=== PATIENT | female | born 1945 | race Caucasian/White ===

== ENCOUNTER 2018-10-24 08:43 | Day surgery (SDC) | payer MEDICARE ==
[~2018-10-24] VITALS: Ht 160 cm; Wt 84.4 kg
[~2018-10-24 08:43] MED LIST: CALCIUM500 MG PO; CLOTRIMAZOLE-BE15 GM TOP; CO Q-1010 MG PO; FLECAINIDE ACET50 MG PO; FOSAMAX70 MG PO; KETOCONAZOLE15 GM TOP; LISINOPRIL-HCT1 EAC2 PO; MAGNESIUM30 MG PO; METOPROLOL SUCC50 MG PO; METOPROLOL TART25 MG PO; SIMVASTATIN20 MG PO; WARFARIN SODIUM5 MG PO
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
--- NOTE | 2018-10-24 11:07 | NUR ---
10/24/18 1107 Erma Lemus 1102 PT TO PACU AWAKE AND TALKING THEN FELL BACK TO SLEEP. O2 PLACED VIA NASAL CANNULA AT 2L
--- NOTE | 2018-10-25 10:46 | OR ---
[facility] [address] [place], [place] [address] Signed DATE OF OPERATION: 10/24/2018 SURGEON: Charlotte Guerra MD PREOPERATIVE DIAGNOSIS: 1. Chronic constipation. 2. History of diarrheal illness, resolved. POSTOPERATIVE DIAGNOSIS: 1. Sigmoid diverticulosis. 2. Small polyp at 30 cm (excised). PROCEDURE: 1. Total colonoscopy to cecum with cold morcellation polypectomy x1 and biopsy of rectum and cecum. 2. Application of hemoclip to persistently bleeding rectal biopsy site. ANESTHESIA: Intravenous sedation, fentanyl 100 mcg, and versed 5 mg. INDICATION: The patient is a 72-year-old white woman, who is a patient Dr. Maldonado, underwent colonoscopy last in 2005 in [place]. She has problems with chronic constipation. She has had no blood per rectum and has no family history of colon cancer. She has had an episode of persistent diarrhea that lasted quite some time a number of months ago, that has resolved. She has admitted at this time to undergo colonoscopy on that basis. The risks of bleeding, infection, and perforation were reviewed with her, and she understands wished to proceed. FINDINGS: The prep was good. Complete colonoscopy was undertaken to the cecum. There was a small polyp at 30 cm, which was excised and there were numerous diverticula. Biopsies were taken of the cecum and rectum on her reported history of "colitis" in the distant past. DESCRIPTION OF PROCEDURE: The patient was brought to the endoscopy suite and placed in lateral decubitus position, given intravenous sedation to the point of slurred speech and nystagmus. Digital rectal examination was normal. An Olympus video colonoscope was passed into the rectum and manipulated throughout the Electronically Signed By: CHARLOTTE GUERRA MD 10/25/18 1046 PATIENT NAME: JOS STONE OPERATIVE REPORT DATE OF : 45 REPORT #: [id number] PHYSICIAN: CHARLOTTE GUERRA MD PCP: EULALIO MALDONADO DO REPORT IS CONFIDENTIAL AND NOT TO BE RELEASED WITHOUT AUTHORIZATION [facility] [address] [place], [place] [address] Signed colon, noting numerous diverticula of the sigmoid and left colon. Scope was ultimately advanced to the cecum. Irrigation was undertaken as needed. A biopsy was taken of the cecum, though it appeared grossly normal. On the basis of her prior history of "colitis," which may in fact have been irritable bowel syndrome. Further withdrawal of scope showed diverticulosis once again on the left side and a small polyp, which was excised with cold morcellation technique. Further withdrawal of scope allowed for biopsy of the rectum. Although, she had been taken off her Coumadin prior to operation four days, a persistent bleeding was noted at that site. On that basis, a hemoclip was applied with impressively good hemostatic result. This also allowed for mucosal reapposition. Retroflexed view showed no other findings. The scope was removed and the patient was taken to recovery room in good condition. CONCLUDING DIVERTICULOSIS: 1. Small polyp of sigmoid. 2. No evidence of colitis proper. PLAN: She will return to the ongoing care of Dr. Eulalio Maldonado. I would recommend repeat colonoscopy in 5 years if polyp was found to be an adenoma. She will resume her usual medications promptly. This includes Coumadin. Charlotte Guerra MD JM/MODL /[id number] cc: Eulalio Maldonado DO Copies: EULALIO MALDONADO DO ~ Electronically Signed By: CHARLOTTE GUERRA MD 10/25/18 1046 PATIENT NAME: JOS STONE OPERATIVE REPORT DATE OF : 45 REPORT #: [id number] PHYSICIAN: CHARLOTTE GUERRA MD PCP: EULALIO MALDONADO DO REPORT IS CONFIDENTIAL AND NOT TO BE RELEASED WITHOUT AUTHORIZATION
== END 2018-10-24 11:43 | disposition home or self-care (01) ==
LOC: OPS 08:43 → DS 08:43 → OPS 08:45 → DS 10:00 → OPS 10:00
PROVIDERS: Surgery
PROC: 0DBN8ZX Excision of Sigmoid Colon, Via Natural or Artificial Opening Endoscopic, Diagnostic (ICD-10-PCS; 2018-10-24)
PROC: 0DBP8ZX Excision of Rectum, Via Natural or Artificial Opening Endoscopic, Diagnostic (ICD-10-PCS; 2018-10-24)
PROC: 0DBH8ZX Excision of Cecum, Via Natural or Artificial Opening Endoscopic, Diagnostic (ICD-10-PCS; principal; 2018-10-24 09:15)
DX: K63.5 Polyp of colon (principal); K52.9 Noninfective gastroenteritis and colitis, unspecified; K57.30 Diverticulosis of large intestine without perforation or abscess without bleeding; I48.0 Paroxysmal atrial fibrillation; I10 Essential (primary) hypertension; G47.30 Sleep apnea, unspecified; Z79.899 Other long term (current) drug therapy; Z98.890 Other specified postprocedural states; Z99.89 Dependence on other enabling machines and devices
CPT/HCPCS: 88305; 99153; G0500; J0694; J2250; J3010; J7060; J7120

== ENCOUNTER 2020-06-09 08:10 | Day surgery (SDC) | payer MEDICARE ==
[~2020-06-09] VITALS: Ht 162.6 cm; Wt 79.5 kg
--- NOTE | ~2020-06-09 | OR ---
[facility] [address] [place], [place] [address] Draft DATE OF OPERATION: 06/09/2020 SURGEON: Elena Ramirez DO PREOPERATIVE DIAGNOSES: 1. Postmenopausal bleeding. 2. Fibroid uterus. 3. Atrial fibrillation, on chronic anti coagulation. POSTOPERATIVE DIAGNOSES: 1. Postmenopausal bleeding. 2. Necrotic endometrial mass. 3. Fibroid uterus. 4. Atrial fibrillation, on chronic anticoagulation. PROCEDURES PERFORMED: 1. Hysteroscopy. 2. Dilation and curettage. ANESTHESIA: MAC. ESTIMATED BLOOD LOSS: 10 mL. SPECIMEN: Necrotic uterine mass. FINDINGS: External genitalia with vulvar irritation, lichenification. The clitoral kang was scarred and the introitus was narrow. Normal postmenopausal vagina and normal-appearing cervix. The cervix is patulous with a large polyp prolapsing through the os that appears necrotic. On hysteroscopy, complex vascular necrotic mass filling the entire uterine cavity. On hysteroscopy, unable to identify tubal ostia bilaterally due to large necrotic mass. Large amount of necrotic tissue removed with MyoSure with sharp curette. Hemostasis at the end of the procedure. COMPLICATIONS: None. PATIENT NAME: JOS PATINO OPERATIVE REPORT DATE OF : 45 REPORT #: [id number] PHYSICIAN: ELENA RAMIREZ DO PCP: PALAK MALDONADO DO REPORT IS CONFIDENTIAL AND NOT TO BE RELEASED WITHOUT AUTHORIZATION [address] [address] Draft INDICATIONS: Ms. Patino is a pleasant 74-year-old, G2, white female, who presents with postmenopausal bleeding, menopause at age 44, with a 25+ year history of uterine fibroids that have not caused her any difficulty. The patient then developed moderate light bleeding this fall. An ultrasound demonstrated a 10.7 x 8.6 x 6.8 cm uterus with multiple large fibroids up to 6.2 cm in diameter. She is continued to spot. Of note, she has AFib and is on Coumadin for this. Coumadin is held and the patient was scheduled for hysteroscopy D and C. Risks, benefits, and alternatives were discussed in detail with the patient. The patient understands and wished to proceed with the procedure. DESCRIPTION OF PROCEDURE: The patient was taken to the operating room, where time-out was performed to confirm correct patient, correct procedure. MAC anesthesia was adequately established. The patient was prepped and draped in the dorsal lithotomy position with feet in Yellofin stirrups, ICPs were on and running, and no preoperative heparin was given. Fold was noted to be quite edematous and irritated with lichenification with scarring of the clitoral kang and narrowing of the introitus. Normal postmenopausal vaginal canal was noted, and the cervix itself looks normal. The cervix, however, was patulous with a large polyp prolapsing through that is necrotic in appearance. The hysteroscope was then placed in the cervical os and advanced under direct visualization into the uterine cavity. The polyp was filling the cervical canal, and the uterine cavity and was grossly necrotic filling the hysteroscopic fluid with debris. I was unable to identify tubal ostia bilaterally. MyoSure REACH device was introduced in attempt to remove the mass. Large portion of the mass was removed with the MyoSure REACH device; however, hysteroscopy. The hysteroscope was removed and evacuation of the uterus was continued with gentle sharp curettage. Large amounts of necrotic uterine contents were expressed and sent to pathology for further evaluation. Evacuation of the uterine cavity was then abandoned due to concerns of increasing risk of perforation with continued curettage, although no concern of perforation at this time. The patient was then taken to PACU in good and stable condition. COUNTS: Sponge, needle, and instrument count was correct x2 at the end of the procedure. FLUIDS: Estimated fluid deficit was 500 mL. Elena Ramirez, PATIENT NAME: JOS PATINO OPERATIVE REPORT DATE OF : 45 REPORT #: [id number] PHYSICIAN: ELENA RAMIREZ DO PCP: PALAK MALDONADO DO REPORT IS CONFIDENTIAL AND NOT TO BE RELEASED WITHOUT AUTHORIZATION [address] [place] [address] Draft JCOURTNEY/NATHALY /[id number] Copies: ~ PATIENT NAME: JOS PATINO OPERATIVE REPORT DATE OF : 45 REPORT #: [id number] PHYSICIAN: ELENA RAMIREZ DO PCP: PALAK MALDONADO DO REPORT IS CONFIDENTIAL AND NOT TO BE RELEASED WITHOUT AUTHORIZATION
[~2020-06-09 08:10] MED LIST changes: +D-RIBOSE1 GM MISC; +FISH OIL 1,0001 EAC2 PO; +FLUCONAZOLE150 MG PO; +L-CARNITINE500 MG PO; +SIMVASTATIN20 MG
--- NOTE | 2020-06-09 11:44 | NUR ---
06/09/20 1144 Annabel Martinez 1139- PT TO PACU IN SF POSITION. EYES CLOSED. RESPONDS TO TACTILE AND VERBAL STIMULI. DENIES PAIN AND NAUSEA. BREATHING EASY AND UNLABORED. SPO2 >95% ON 6 L O2 VIA SIMPLE MASK. OJCE PAD IN PLACE, SCANT BLEEDING OBSERVED.
--- NOTE | 2020-06-16 13:31 | PATH ---
[facility] [address] [place], [place] [address] Signed SPECIMEN(S): A UTERINE FIBROID, ENDOMETRIAL MASS SPECIMEN SOURCE: A. UTERINE FIBROID, ENDOMETRIAL MASS CLINICAL HISTORY: Hysteroscopy DC. Postmenopausal bleeding, fibroids, intramural leiomyoma of uterus. 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 - See Comment. COMMENT: Sections demonstrate abundant sheets of poorly differentiated, high-grade tumor cells with epithelioid, rhabdoid, and focal spindled appearance, frequent mitoses and areas of tumor necrosis. Very rare fragments of atypical epithelium are present. Rare fragments of benign appearing smooth muscle are present, but no background endometrium is seen. Immunohistochemical stains (with appropriately staining controls) were performed. The tumor cells are positive for desmin, CD10 (patchy), p16 (diffuse and strong), and p53 (mutated pattern). Pancytokeratin (AE1/AE3), HILARY, smooth muscle actin, ER, synaptophsin, chromogranin, and CD45 are all negative in the tumor cells. Focal myogenin positivity is seen within the tumor cells, confirming skeletal muscle differentiation of at least a portion of the tumor. The focal strips of atypical epithelium are diffusely and strongly positive for p53 and p16, raising the possibility of an undersampled or underrepresented carcinomatous component. Overall, the combined morphologic and immunophenotypic profile of the tumor is most compatible with a high-grade sarcoma with rhabdomyosarcomatous differentiation, and the present of rare atypical epithelium raises the possibility of carcinosarcoma. Final classification of the neoplasm is best performed on fully resected specimen. As part of [facility]' Quality Improvement Program, this case was reviewed by another member of our pathology staff. Preliminary findings were discussed with Dr. Ramirez on 06/13/2020 . PATIENT NAME: JOS STONE PATHOLOGY DATE OF : 45 REPORT #: [id number] PHYSICIAN: DEVON ZUÑIGA PCP: PALAK MALDONADO DO REPORT IS CONFIDENTIAL AND NOT TO BE RELEASED WITHOUT AUTHORIZATION [facility] [address] [place] [place] [address] Signed NAL:cml:C1NR MICROSCOPIC EXAMINATION: Histologic sections of all submitted blocks are examined by light microscopy. Immunohistochemical stains (with appropriately staining controls) for desmin, CD10, p16, p53, pancytokeratin (AE1/AE3), HILARY, smooth muscle actin, ER, synaptophysin, chromogranin, CD45, and myogenin were performed on block A1 to further characterize the sarcoma. Additional immunohistochemical stains (with appropriately staining controls) for p16 and p53 were performed on block A2 to evaluate the rare atypical epithelium. The results of these stains are described in the comment section of the report.These findings, together with the gross examination, support the pathologic diagnosis. GROSS DESCRIPTION: The specimen, labeled "ALBERTO," and designated on the requisition "endometrial mass," is received in formalin and consists of multiple fragments of brown-herrera to pink-herrera and hemorrhagic tissue (11.5 x 9.0 x 2.3 cm in aggregate). Ostrich Farmer sections are submitted in cassettes (A1-A5). AC (under the direct supervision of a pathologist) Additional sections are submitted in cassette A6-A8 at the request of Dr. Pena The Gross Description was prepared using a voice recognition system. The report was reviewed for accuracy; however, sound-alike word errors, addition and/or deletions may occur. If there is any question about this report, please contact Client Services. ADDITIONAL NOTES: Immunohistochemical and/or in situ hybridization studies were performed on this case with the appropriate positive controls that react as expected. This test was developed and its performance characteristics determined by [facility]. It has not been cleared or approved by the U.S. Food and Drug Administration. The FDA has determined that such clearance or approval is not necessary. This test is used for clinical purposes. It should not be regarded as investigational or for research. [facility] is certified under the Clinical Laboratory Improvement Amendments of 1988 (CLIA) as qualified to perform high complexity clinical laboratory testing. PERFORMING LABORATORY: The technical component was performed by [facility], [facility] Khushbu Arrington, PATIENT NAME: JOS STONE PATHOLOGY DATE OF : 45 REPORT #: [id number] PHYSICIAN: DEVON ZUÑIGA PCP: PALAK MALDONADO DO REPORT IS CONFIDENTIAL AND NOT TO BE RELEASED WITHOUT AUTHORIZATION [facility] [address] [place], [place] [address] Signed JEAN Mcneal [id number] (Senior Service Technician: Brigitte Delacruz MD; CLIA# [id number]). [facility], [address] [facility] [address] [address] (CLIA# [id number]). Diagnostician: Soco Pena MD Pathologist Electronically Signed 06/16/2020 Copies: ~ PATIENT NAME: JOS STONE PATHOLOGY DATE OF : 45 REPORT #: [id number] PHYSICIAN: DEVON ZUÑIGA PCP: PALAK MALDONADO DO REPORT IS CONFIDENTIAL AND NOT TO BE RELEASED WITHOUT AUTHORIZATION
== END 2020-06-09 13:20 | disposition home or self-care (01) ==
LOC: DS 08:10 → OPS 08:10 → DS 08:45 → OPS 09:15 → DS 09:15 → OPS 13:20
PROVIDERS: ATTEND Obstetrics & Gynecology
PROC: 0UDB8ZX Extraction of Endometrium, Via Natural or Artificial Opening Endoscopic, Diagnostic (ICD-10-PCS; principal; 2020-06-09 09:15)
DX: C54.1 Malignant neoplasm of endometrium (principal); I96 Gangrene, not elsewhere classified; N85.8 Other specified noninflammatory disorders of uterus; I10 Essential (primary) hypertension; I48.0 Paroxysmal atrial fibrillation; E78.00 Pure hypercholesterolemia, unspecified; G47.33 Obstructive sleep apnea (adult) (pediatric); E66.01 Morbid (severe) obesity due to excess calories; J45.909 Unspecified asthma, uncomplicated; Z79.01 Long term (current) use of anticoagulants; Z79.899 Other long term (current) drug therapy; Z68.31 Body mass index [BMI] 31.0-31.9, adult
CPT/HCPCS: 00952; 88305; 88341; 88342; J2001; J2250; J2704; J3010; J7121

== ENCOUNTER 2021-12-22 10:44 | Day surgery (SDC) | payer MEDICARE ==
[~2021-12-22] VITALS: Ht 162.6 cm; Wt 58.1 kg
[~2021-12-22 10:44] MED LIST changes: +FENTANYL1 EAC3 TD; +LENVIMA4 MG PO; +LOMOTIL TABLET1 EACH PO; +ZESTRIL20 MG PO
[2021-12-22] MEDS ORDERED: OXYCODONE HCL5 MG PO (11:22)
[2021-12-22] MEDS ORDERED: AMLODIPINE BESYL5 MG PO (11:24)
[2021-12-22] MEDS ORDERED: CIPRO500 MG PO (11:43)
--- NOTE | 2021-12-22 15:08 | NUR ---
12/22/21 1508 Sheets,Janee 1452 PT ARRIVED TO PACU ON 10L VIA MASK, ORAL AIRWAY IN PLACE AND RESP EVEN AND UNLABORED. VSS. 1500 PT WOKE TO TACTILE STIMULI AND ORAL AIRWAY REMOVED, PT REORIENTED TO PACU. PT DENIES PAIN AND NAUSEA AND O2 REMOVED. 1507 PT CONTINUES TO DENY PAIN AND IS MORE AWAKE.
--- NOTE | 2021-12-22 15:30 | NUR ---
PT RETURNED TO ROOM WITH FRIEND AT BEDSIDE. PT REPORTS 3/10 PAIN AND TOLERABLE AT THIS TIME. VSS.
--- NOTE | 2021-12-22 16:00 | NUR ---
PT UP TO BATHROOM AND VOID NOTED ON FLOOR AND IN BED. VOID NOTED IN JOCE PAD. BED CHANGED AND NEW GOWN GIVEN. PT BACK TO BED AND PLAN OF CARE DISCUSSED.
--- NOTE | 2021-12-22 16:57 | NUR ---
PT RATES PAIN 3/10 PAIN AND GRIMACING WHEN SHE MOVES AND GETS UP TO BATHROOM. PAIN MEDICATION GIVEN. HOB INCREASED AND PT EATING FOOD AND TALKING TO FRIEND AND RN.
--- NOTE | 2021-12-22 17:55 | NUR ---
PT REPORTS PAIN IS "BETTER" 2/10. PT EAT DINNER AND REPORTS "IT WAS SO GOOD." NO NAUSEA. VSS AND DC INSTRUCTIONS GIVEN. PAPERWORK WITH RX GIVEN AND ALL QUESITONS ANSWERED. RN WALKS PT OUT.
--- NOTE | 2021-12-25 10:25 | OR ---
[facility] [address] [place], [place] [address] Signed DATE OF OPERATION: 12/22/2021 SURGEON: Darrel Saez MD PREOPERATIVE DIAGNOSES: 1. Sudden onset severe urinary incontinence. 2. History of mixed Mullerian malignancy, status post chemotherapy and radiation. 3. Intravaginal vaginal mass, suspicious for recurrence of primary malignancy. POSTOPERATIVE DIAGNOSES: 1. No evidence of vesicovaginal or ureterovaginal fistula. 2. History of mixed Mullerian tumor, status post radical hysterectomy with chemotherapy and radiation. 3. 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 NAMES OF PROCEDURES: 1. Pelvic examination under anesthesia. 2. Diagnostic cystoscopy with bilateral retrograde pyelogram. 3. Intraoperative cystogram with tampon test. 4. Biopsy of vaginal wall nodule. ANESTHESIA: General. ESTIMATED BLOOD LOSS: Minimal. COMPLICATIONS: None. SPECIMENS: Tissue obtained from indurated nodule located in the anterior vaginal wall was placed in a specimen cup and sent to Pathology for evaluation. DRAINS: None. INDICATIONS FOR PROCEDURE: Ms. Patino is a very pleasant 75-year-old female, who has undergone quite a lot of intervention for her terminal mixed Mullerian tumor, diagnosed last year after Electronically Signed By: DARREL SEAZ MD 12/25/21 1025 PATIENT NAME: JOS PATINO OPERATIVE REPORT DATE OF : 45 REPORT #: [id number] PHYSICIAN: DARREL SAEZ MD PCP: PALAK MALDONADO DO REPORT IS CONFIDENTIAL AND NOT TO BE RELEASED WITHOUT AUTHORIZATION [facility] [address] [place], [place] [address] Signed undergoing a radical hysterectomy. She had initially presented to my colleague, Dr. CECILIA Ramirez with postmenopausal bleeding. Since that time, the patient has undergone both chemotherapy and along with salvage radiation to her gynecologic organs. Her biggest complaint of late is that she has begun to experience relatively sudden onset urinary incontinence. I was approached by Dr. Ramirez, who has requested that I evaluate the patient to determine whether or not she has developed a communication between the bladder and her vagina that would be the source of her incontinence. This is particularly true since she has undergone radiations area. Dr. Eddie Bishop also approached me to request that I obtain a biopsy from her vagina as he had recently noticed a vaginal mass on pelvic examination. Since that time, the patient has been experiencing a significant amount of pain, for which I recently contacted Dr. Oates to request that she begin more aggressive pain control with a fentanyl patch. She was recently given samples of Gemtesa in an effort to help with her incontinence. She reports today she is not sure if the medications have resulted in any improvement in her leakage. OPERATIVE FINDINGS: 1. Pelvic examination under anesthesia reveals a good deal of erythema on the external genitalia primarily the mons, labia, and bilateral inguinal creases. There is also erythema moving down to her perineum and her anal region. This appears to be mostly secondary to a contact dermatitis. Also, noted on exam is obvious necrosis of the introitus and of the distal vaginal canal. This does not seem to be related to the malignancy itself. However, it is more likely secondary to her radiation in this area. Also, noted is a good deal of necrotic tissue surrounding her urethral meatus. There is a palpable nodule on the proximal to mid anterior vaginal wall. This could either be due to the presence of recurrence or possibly reactive inflammation. 2. Diagnostic cystoscopy reveals no evidence of any bladder masses, lesions, or stones. In fact, the bladder wall appears quite healthy with no evidence of any erythema or stippling of the bladder wall mucosa. Bilateral ureteral orifices are in their normal anatomic location. 3. Bilateral retrograde pyelograms reveals no evidence of any hydronephrosis or filling defects within either kidney or ureter. Also no evidence of contrast extravasation from either ureter to suggest a ureterovaginal fistula. 4. Intraoperative cystogram was performed where approximately 270 mL of contrast solution along with fluorescein dye was instilled into the patient's bladder. Any additional volume instilled into the bladder resulted in immediate leakage of fluid from the patient's urethra. This indicates a poor bladder compliance, which again is a sign of potential neurogenic pathology. The cystogram revealed no evidence of any contrast extravasation during peak distention of the bladder as well as afterwards once the bladder was completely drained of contrast. This suggests that there is no active fistula between the patient's bladder and vagina. During this portion of the procedure, a tampon was inserted into the patient's vagina to evaluate again for possible Electronically Signed By: DARREL SAEZ MD 12/25/21 1025 PATIENT NAME: JOS PATINO OPERATIVE REPORT DATE OF : 45 REPORT #: [id number] PHYSICIAN: DARREL SAEZ MD PCP: PALAK MALDONADO DO REPORT IS CONFIDENTIAL AND NOT TO BE RELEASED WITHOUT AUTHORIZATION [address] [address] Signed vesicovaginal fistula. Once the tampon was pulled at the end of the cystogram, there was no evidence of any fluorescein dye present on the proximal portion of the tampon again confirming no evidence of fistulous communication. 5. There was a 1 cm nodule present in the mid portion of the anterior vaginal wall that appeared to be more likely to be reactive inflammatory change versus recurrence of the patient's malignancy. However, I did go ahead and biopsy this area. The two tissue samples were obtained and will be sent to Pathology for evaluation. DESCRIPTION OF PROCEDURE: After informed consent was obtained, the patient was taken back to the operating room where she was placed in the dorsal lithotomy position. Her genitalia were prepped and draped in a standard sterile fashion. Using a 30-degree lens on a 22.5-Dutch introducer, a rigid cystoscope was inserted through her urethra into her bladder under direct visualization. Panendoscopic views of the bladder were then obtained. Please see above findings. I then advanced a cone-tipped catheter into the patient's bladder and up to the left ureteral orifice. A left retrograde pyelogram was performed. Please see above findings. The same procedure was performed on the right side. Please see above findings. I then emptied the patient's bladder and removed the cystoscope. A pelvic exam under anesthesia was then performed. Please see above findings. I then inserted a tampon into the patient's vagina. A 16-Dutch Son catheter was inserted into the patient's bladder and the balloon was filled with 10 mL of water. A solution of contrast, fluorescein dye, and water was then instilled into the patient's bladder up to approximately 270 mL. At this point in time, the patient began to leak the solution back out from her bladder. This is consistent with detrusor instability and poor bladder compliance. At maximum distention, a cystogram was performed, which revealed no evidence of any contrast extravasation. The bladder baxter were nice and smooth and round and there were no filling defects present. I then took multiple pictures as the bladder was being emptied slowly via the catheter. There was no evidence of any contrast extravasation even after the bladder was completely drained of fluid. I removed the tampon at this time and noted no fluorescein dye on the tampon. This was consistent with a negative tampon test and therefore, there is no vesicovaginal fistula present. Once the patient's bladder was completely drained, I turned my attention to the vaginal wall. Palpation did reveal a 1 cm nodule on the mid portion of the anterior vaginal wall. This does not seem to be overtly suspicious for tumor recurrence. In general, the proximal and midportion of the vaginal canal appears quite normal and healthy. It was the distal aspect of the vaginal canal as well as the introitus that appears to be actively necrotic and sloughing off necrotic tissue. I used a 0 [address] needle to gain control of the suspicious area on the anterior vaginal wall. Once using the suture, I pulled this vaginal nodule towards me and used it to gain traction as I used Metzenbaum scissors to slice a portion of this nodule from the anterior vaginal wall. Twi 6-7 mm pieces of tissue were obtained successfully. Bovie cauterization was then used to cauterize the biopsy site and this was performed Electronically Signed By: DARREL SAEZ MD 12/25/21 1025 PATIENT NAME: JOS PATINO OPERATIVE REPORT DATE OF : 45 REPORT #: [id number] PHYSICIAN: DARREL SAEZ MD PCP: PALAK MALDONADO DO REPORT IS CONFIDENTIAL AND NOT TO BE RELEASED WITHOUT AUTHORIZATION [address] [address] Signed successfully. I then placed some bacitracin compound on the biopsy site itself. The specimen will be sent to Pathology for evaluation. I then irrigated the patient's vaginal canal thoroughly with sterile water and made sure there was no additional bleeding present in the area. I then applied a barrier cream to the patient's external genitalia primarily over the areas of erythema that appeared to be very tender to palpation. The procedure was then terminated. The patient tolerated the procedure well without any complication. She will now be transferred to the postanesthesia care unit in stable condition. DISPOSITION: I discussed the details of today's procedure both with the patient and her daughter and explained my findings today. Overall, I did not find any evidence of the vesicovaginal or ureterovaginal fistula today. I suspect that most of her urinary incontinence is related to detrusor instability, most likely due to damage of the pelvic nerves from chemotherapy. Since the patient did not seem to respond well to Gemtesa, I have written a prescription for oxybutynin ER 5 mg p.o. daily for her OAB symptoms. Dr. Ramirez was notified of today's biopsy results. Both Dr. Ramirez and Dr. Bishop will be sent copies of the pathology report of the vaginal biopsy obtained today. I have made the patient aware that she may increase her oxybutynin dose to 10 mg daily if she does not notice enough response on the 5 mg dose. As of now, the patient will follow up in the urology clinic on an as-needed basis. MD YOLANDE Cabello/GONZALESL /[id number] Copies: ~ Electronically Signed By: DARREL SAEZ MD 12/25/21 1025 PATIENT NAME: JOS PATINO OPERATIVE REPORT DATE OF : 45 REPORT #: [id number] PHYSICIAN: DARREL SAEZ MD PCP: PALAK MALDONADO DO REPORT IS CONFIDENTIAL AND NOT TO BE RELEASED WITHOUT AUTHORIZATION
--- NOTE | 2021-12-26 11:43 | PATH ---
[facility] [address] [facility] [place] [place] [address] Signed SPECIMEN(S): A PROXIMAL ANTERIOR VAGINAL WALL SPECIMEN SOURCE: A. PROXIMAL ANTERIOR VAGINAL WALL CLINICAL HISTORY: Cystoscopy with retrograde pyelogram, vaginal biopsy. Suspected UTI, endometrial CA. Rule out fistula. FINAL PATHOLOGIC DIAGNOSIS: Vagina, proximal anterior, biopsy: - Fragments of reactive squamous mucosa with underlying soft tissue necrosis and associated acute inflammation, see comment. COMMENT: The clinical concern of fistula is noted. Multiple additional deeper levels of the tissue were examined but no definitive fistula tract is identified. Correlation with clinical findings is required. NAL:cml:C2NR MICROSCOPIC EXAMINATION: Histologic sections of all submitted blocks are examined by light microscopy. These findings, together with the gross examination, support the pathologic diagnosis. GROSS DESCRIPTION: The specimen, labeled "ALBERTO, proximal anterior vagina wall," is received in formalin and consists of two pink-herrera soft tissue fragments that measure 0.5 and 1.1 cm in greatest dimension. Smaller tissue fragment is inked, and both are bisected. Specimen is entirely submitted in cassette (A1). JS (under the direct supervision of a pathologist) The Gross Description was prepared using a voice recognition system. The report was reviewed for accuracy; however, sound-alike word errors, addition and/or deletions may occur. If there is any question about this report, please contact Client Services. PERFORMING LABORATORY: The technical component was performed by [facility], [address] [place] [id number] (CLIA# [id number]). Professional interpretation was performed [facility] PATIENT NAME: JOS STONE PATHOLOGY DATE OF : 45 REPORT #: [id number] PHYSICIAN: [facility] PATHOLOG[facility] PCP: PALAK MALDONADO DO REPORT IS CONFIDENTIAL AND NOT TO BE RELEASED WITHOUT AUTHORIZATION [facility] [address] [facility] [place], [place] [address] Signed [facility] [address] [facility], [facility] [address], [place], [place] [address] (CLIA# [id number]). Diagnostician: Soco Pena MD Pathologist Electronically Signed 12/26/2021 Copies: ~ PATIENT NAME: JOS STONE PATHOLOGY DATE OF : 45 REPORT #: [id number] PHYSICIAN: [facility] PCP: PALAK MALDONADO DO REPORT IS CONFIDENTIAL AND NOT TO BE RELEASED WITHOUT AUTHORIZATION
== END 2021-12-22 17:55 | disposition home or self-care (01) ==
LOC: DS 10:44
PROVIDERS: ATTEND Urology
PROC: BT14ZZZ Fluoroscopy of Kidneys, Ureters and Bladder (ICD-10-PCS; 2021-12-22)
PROC: BT10ZZZ Fluoroscopy of Bladder (ICD-10-PCS; principal; 2021-12-22 13:00)
PROC: 0UBG7ZX Excision of Vagina, Via Natural or Artificial Opening, Diagnostic (ICD-10-PCS; 2021-12-22 13:00)
DX: N76.0 Acute vaginitis (principal); N32.81 Overactive bladder; Z85.44 Personal history of malignant neoplasm of other female genital organs; M81.0 Age-related osteoporosis without current pathological fracture; E78.00 Pure hypercholesterolemia, unspecified; G47.33 Obstructive sleep apnea (adult) (pediatric); J45.909 Unspecified asthma, uncomplicated; Z96.651 Presence of right artificial knee joint
CPT/HCPCS: 74420; 76000; J0690; J1100; J1885; J2001; J2405; J2704; J7121

== ENCOUNTER 2022-01-16 15:55 | Inpatient (IN) | payer MEDICARE ==
[~2022-01-16] VITALS: Ht 162.6 cm; Wt 54.3 kg
[~2022-01-16 15:55] MED LIST changes: +AMLODIPINE BESYL5 MG PO; +CIPRO500 MG PO; +OXYCODONE HCL5 MG PO
--- OUTSIDE RECORDS SUMMARY | 2022-01-16 15:58 | XMS ---
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 E.DLou VISIT COUNT (12 MO.) 1 CHRISTOPHER Carey TOTAL 1 NOTE: Visits indicate total known visits. ED/UCC VISIT TRACKING (12 MO.) 01/16/2022 15:56 [facility]RISTOPHER Pantoja OR TYPE: Emergency COMPLAINT: - WEAKNESS INPATIENT VISIT TRACKING (12 MO.) No inpatient visits to display in this time frame [email or web address]
[2022-01-16] MEDS ORDERED: FENTANYL1 EACH TD ×2 (16:09)
--- NOTE | 2022-01-16 22:33 | NUR ---
PT TO 107 FROM ER VIA [facility] - REPORT FROM MARLEN IN ER. MACHINE OILER MYA DOING ADMIT AND SPOKE WITH PT DAUGHTER. OT FALLS ASLEEP EASILY WITH ADMIT, ER REPORTS UNABLE TO GET UA SAMPLE AND PAINFUL FOR PT - DR. COLLIER AWARE.
--- NOTE | 2022-01-17 00:29 | EKG ---
[facility] [address] [facility] [place], [place] [address] Signed Normal sinus rhythm Lateral infarct , age undetermined Abnormal ECG When compared with ECG of 12-OCT-2021 10:36, No significant change was found Confirmed by SHIRA COLLIER MD ([id number]) on 01/17/2022 12:29:02 AM Electronically Signed By: SHIRA COLLIER MD 01/17/22 0029 PATIENT NAME: JOS STONE Electrocardiogram DATE OF : 45 PHYSICIAN: SHIRA COLLIER MD REPORT #: [id number] REPORT IS CONFIDENTIAL AND NOT TO BE RELEASED WITHOUT AUTHORIZATION
--- NOTE | 2022-01-17 00:32 | NUR ---
PT SLEEPING SOUNDLY WITH BED ALARM ON AND CALL LIGHT IN REACH. RESP EVEN.
--- NOTE | 2022-01-17 02:45 | NUR ---
assisted pt with sips of water - pt very sleepy - hob up for drink - mouth dry. attends checked - dry, pt closes eyes and resp even.
--- NOTE | 2022-01-17 07:45 | NUR ---
Patient in bed watching tv, no distress. Patient reports she slept well last night. Patient denies needs for pain medications at this time. IV magnesium started per provider order. Patient updated with plan of care. Personal supplies and call light within reach.
[2022-01-17] MEDS ORDERED: SENEXON-S 50-81 EACH PO ×2 (07:55)
[2022-01-17] MEDS ORDERED: PENTOXIFYLLINE400 MG PO ×2 (07:56)
[2022-01-17] MEDS ORDERED: OXYBUTYNIN CHLOR5 MG PO ×2 (07:57)
--- NOTE | 2022-01-17 08:19 | NUR ---
MORNING MEDS GIVEN. PT ALERT, ORIENTED. ASSISTED PT TO SITTING POSITION FOR BREAKFAST. VITAL SIGNS STABLE.
--- NOTE | 2022-01-17 10:27 | NUR ---
Oxycodone 5MG po admin for reports of 8/10 vaginal pain.
--- NOTE | 2022-01-17 10:30 | NUR ---
Spoke with pt and her daughter. Pt is altered with pain meds, daughter here from [place] and cancelled flight home to make arrangements for mom. Daughter has been here for the last week and states pt cannot live alone. Daughter wants pt placed in a [facility] and would like [facility] Daughter and patient both state pt is unable to stand due to pain from radiation treatment following cancer. Pt is debating if she will go on hospice and continue treatment.Pt lives alone in a house with 2 steps. she is unable to walk due to pain. She has several canes. Daughter is Olimpia [phone]. Texted Summer at [facility] for bed availability.
--- NOTE | 2022-01-17 12:00 | NUR ---
Contacted by Brigette at [facility], they cannot accept this pt at this time. Contacted [facility] and [facility] in [place]. [facility] has a bed open and [facility] may have a bed. Spoke with daughter and she would like pt to remain in town. [facility] to [facility]. She will have their education spec it tomorrow.
--- NOTE | 2022-01-17 13:06 | NUR ---
Patient repositioned at this time. Patient consumed a high protein shake with encouragement, patient reports poor appetite today. IV fluids infusing per provider order. Family at bedside visiting patient. No current needs, personal supplies and call light within reach.
--- NOTE | 2022-01-17 13:45 | NUR ---
Asked by staff to speak with daughter. She states she would like to speak with Dr. Oates as she feels continued Chemo treatment will not help her mom. [facility] and spoke with Floresita. She states Dr. Hooper would have time to speak with pt at 3 pm. Was able to reach daughter at 2pm. She is outside the hospital, but will return to speak with him at 3pm. I again discussed with daughter Hospice does not work well for pt who are not ready for comfort care. I gave her the other option of Palliative care through [facility]. She wants to speak with Dr. Hooper.
--- NOTE | 2022-01-17 14:16 | NUR ---
PT RESTING, DAUGHTER ALFONSO AT BS. PT WAKE TO THE SOUND OF MY VOICE-FAMILIAR WITH PT FROM CANCER CLINIC. GOOD RELATIONSHIP, PT EXPRESSES HER PAIN IS SEVERE, ALFONSO ACKNOWLEDGES. CAREGIVER TRAY ORDERED FOR ALFONSO, COMFORT AND SUPPORT GIVEN. GAVE BLESSING TO PT, WILL FOLLOW. OUTSIDE , ALFONSO EXPRESSES ANXIETY FOR PAIN PT IS IN. WANTS TO FURTHER DISCUSSION WITH JAMES COLEMAN AND DR SHARMA REGARDING POSSIBLE TRANSITION TO HOSPICE CARE. JAMES COLEMAN IS AWARE ALFONSO WILLING TO MOVE HERE FROM [facility] TO CARE FOR PT. WILL FOLLOW NEEDED
--- NOTE | 2022-01-17 17:17 | NUR ---
Oxycodone 5mg po admin for reported vaginal pain, 01/14. Patient repositioned at this time. Daughter at bedside assisting with cares. No further needs.
--- NOTE | 2022-01-17 19:00 | NUR ---
bedside report from [facility], pt daughter in room with guest, pt appears comfortable, saline eye drops to both eyes from rn - dr ugalde aware. Ice chips provided. iv fusing well.
--- NOTE | 2022-01-17 20:00 | NUR ---
PT 2 PERSON ASSIST TO BSC TO VOID, THICK FOUL SMELLING DRAINAGE 100 ML OF PURULENT FLUID EMPTIED WITH SMALL CHUNKS OF BLOODY CLOTS OUT. WIPED PT AND JOCE CARE DONE, SPOTTING OF BLOOD NOTEED. PT PAINFUL AT SITTING POSIITION DUE TO CANCER - PT BACK TO BED AND REPOSITIONED ON RIGHT SIDE.
--- NOTE | 2022-01-17 20:46 | NUR ---
MEDS GIVEN WITH PUDDING, IV FUSING WELL, DTG AT BEDSIDE OF PT - PT SEEMS ANXIOUS - PAIN PILL GIVEN, EYE DROPS GIVEN FOR COMFORT.
--- NOTE | 2022-01-17 22:27 | NUR ---
prn ativan given iv for anxiety related to end of life discussions with family - pt wanting to leave and return home, reasured by family and rn.
--- NOTE | 2022-01-17 22:47 | NUR ---
PT DAUGHTER CAME OUT TO TALK WITH THIS RN AND ALSO NOTED THAT AFTER PT CHANGED ROOMS - SHE WAS CONFUSED AND TEARFUL AND WANTED TO GO HOME. SHE DID NOT RECOGNISE HER EX AT BEDSIDE AND ONLY WANTED HER DTG ALFONSO TO TOUCH HER... PT RE ORIENTED AND REASSURED BY FAMILY.
--- NOTE | 2022-01-18 03:36 | NUR ---
pt eyes closed, resp even. iv fusing well.
--- NOTE | 2022-01-18 05:47 | NUR ---
PER LINUX ADMIN ENGINEERTATI FOR PUREWICK CATHETER. ORDER IN PLACE.
--- NOTE | 2022-01-18 07:27 | NUR ---
Patient in bed resting, eyes closed, respirations even non labored. Patient has no notable distress. Call light within reach.
--- NOTE | 2022-01-18 09:16 | NUR ---
Patient resting in bed, alert and oriented x3 this morning. Patient emotional, she reports she wants to go home. Pt updated with plan of care at this time. Pt's daughter went home to get some rest per report. Patient declined pain medication at this time. Pure wick in place at this time, appears to be working appropriately, clear yellow urine with sediment noted in canister, trung area dry at this time. Pt repositioned.
--- NOTE | 2022-01-18 10:07 | NUR ---
KAREN BARRY RN AT [facility] REGARDING PATIENT PLACEMENT.
--- NOTE | 2022-01-18 11:03 | NUR ---
PER [facility] THEY ARE UNABLE TO ACCEPT PATIENT AT THIS TIME. WILL CONTINUE TO SEARCH FOR PLACEMENT.
--- NOTE | 2022-01-18 11:43 | NUR ---
DR. COLLIER IN CONSULTING WITH PATIENT AND FAMILY AT THIS TIME.
--- NOTE | 2022-01-18 12:36 | NUR ---
Patient repositioned and trung care provided. Patient assisted with eating lunch at this time, she tolerated 50% very well. Patient has intermittent confusion this afternood, she is emotional and fearful regarding plan of care, pt reassured that she is safe and cared for. Patient receptive to plan of care. Oxycodone 5mg po admin for reports of ongoing pelvic pain. Pure wick intact, skin appears improved to trung area, less redness noted. Brooks at bedside assisting with cares. Patient to have an MRI of brain here at 1300, pt and daughter aware.
--- NOTE | 2022-01-18 13:09 | NUR ---
Fentanyl patch removed for MRI scan. New patch to be placed once pt back from scan. Updated pharmacy at this time.
--- NOTE | 2022-01-18 13:43 | NUR ---
Patient back to medical floor from MRI study at this time. Luz Maria care done and pure wick replaced. IV fluids restarted. Patient reports she is comfortable at this time, no distress noted. Call light within reach.
--- NOTE | 2022-01-18 14:28 | NUR ---
PT'S DAUGHTER ALFONSO AND HER DAD JULIO ARE IN VISITING. JUST LEAVING FOR A BITE TO EAT. SPENT TIME WITH PT, HER COGNITIVE ABILITY BEGINNING TO SLIP. PT WAS MOVED TO A DIFFERENT AND THAT REALLY DISORIENTED HER- SHE ADMITTED PT FEELS A NEED TO HAVE END OF LIFE ISSUES SETTLED. TRUST IN PLACE, GAVE PT A BOOKLET FOR END OF LIFE PLANNING. PT IN GREAT PAIN, PASSED ON TO HAIDER GATICA. SHE WILL CONFER WITH DR COLLIER. PT REQUESTED PRAYER, WILL FOLLOW
--- NOTE | 2022-01-18 15:04 | NUR ---
GOT PATIENT TWO WARM BLANKETS. PATIENT IS SLEEPING.
--- NOTE | 2022-01-18 16:16 | NUR ---
DAUGHTER IS IN ROOM.
--- NOTE | 2022-01-18 16:20 | NUR ---
Admin Oxycodone 5mg po admin for reports of 5/10 pelvic pain.
--- NOTE | 2022-01-19 01:59 | NUR ---
PT WAS CLEANED AND HER ATTENDS , CHUX AND BOTTOM SHHET WAS CHANGED. SHE WAS INCONTINENT OF URINE, HAD PULLED OUT THE PURE WICK. PT WAS TRYING TO GET OUT OF BED TO GO TO ANOTHER BED. REORIENTED PT TO HOSPITAL SETTING.
--- NOTE | 2022-01-19 04:05 | NUR ---
PT IS SLEEPING QUIETLY ON HER BACK. DID NOT DISTURB HER. BED IN LOW POSITION, BED ALARM ON.
--- NOTE | 2022-01-19 09:26 | NUR ---
TO PT ROOM FOR MORNING ASSESSMENT AND MEDICATION ADMINISTRATION. PT IS ALERT AND CONVERSIVE. RATES PAIN 7/10, PRN OXYCODONE GIVEN. CALL LIGHT WITHIN REACH.
--- NOTE | 2022-01-19 11:30 | NUR ---
Received a call from staff, asking if I could go to the pts room. Dr. Sepulveda in the room discussing options with daughter and pt. They have now decided they would like to go home with hospice. Let them know I will need to make some calls to see when a hospice could get in. Mom would like Hospice from . Called and spoke with Rochelle and she states she would not be able to deliver supplies or admit pt until Saturday. She request I send the chart. Chart faxed with referral for Hospice.
--- NOTE | 2022-01-19 12:23 | NUR ---
Patient repositioned at this time. Pt alert and oriente x2, pleasant mood this afternoon. Patient reports her pain is tolerable at this time. Luz Maria care provided, pure wick in place, cloudy yellow urine noted. Patient eating lunch at this time. Family at bedside visiting and assisting with cares. No current needs at this time. Personal supplies and call light within reach.
--- NOTE | 2022-01-19 12:50 | NUR ---
Chart faxed to [facility] after conversation with daughter, pt., and Dr. Sepulveda. Spoke with Rochelle and she believes they can admit this pt on Saturday or Saturday.UPdated pt is in need of a hospital bed to go home due to her amount of pain. They do not provide equipment prior to an admission.
--- NOTE | 2022-01-19 14:00 | NUR ---
Received a message from Rochelle, they can admit this pt to hospice on Saturday at 5:00 pm. They are working on ordering a bed and night stand. Updated daughter. She states she feels she set something in motion she is not ready for.
--- NOTE | 2022-01-19 14:58 | NUR ---
ADMIN OXYCODONE 5MG PO FOR REPORTS OF VAGINAL PAIN. PT REPOSITIONED AT THIS TIME. PURE WICK INTACT, CLOUDY YELLOW URINE NOTED. PATIENT PROVIDED WITH ENSURE. NO FURTHER NEEDS, PERSONAL SUPPLIES AND CALL LIGHT WITHIN REACH.
--- NOTE | 2022-01-19 15:01 | NUR ---
Received call from Юлия requesting HT and WT. Asked when DME will be delivered and she states by 12 n on Saturday. She also requests pt goes with 2 days of meds as the pharmacy will be closed by the time their RN gets there to admit the pt after 5 pm on Saturday. I will pass this on to Dr. Sepulveda.
--- NOTE | 2022-01-19 16:29 | NUR ---
TO PT ROOM TO CHECK ON PT. PT DENIES PAIN ATT. THIS RN ASSISTED CONFECTIONERY DROPS MACHINE OPERATOR WITH PERICARE AND CHANGE OF PUREWICK. CALL LIGHT WITHIN REACH.
--- NOTE | 2022-01-19 17:45 | NUR ---
TO PT ROOM TO CHECK ON PT. MEAL ON BEDSIDE TRAY PT STATED SHE DID NOT HAVE AN APPETITE. FAMILY ARRIVED AND IS ENCOURAGING HER TO EAT. CALL LIGHT WITHIN REACH.
--- NOTE | 2022-01-19 18:41 | NUR ---
TO PT ROOM TO CHECK ON PT. PT DENIES NEED FOR PAIN MEDICATION ATT. PT IS SLEEPY BUT ORIENTED. FAMILY AT BEDSIDE. CALL LIGHT WITHIN REACH.
--- NOTE | 2022-01-19 19:49 | NUR ---
REPORT RECEIVED. DAUGHTER IS AT BEDSIDE ASSISTING PT WITH DINNER. PT WAS ABLE TO EAT FRUIT AND MEAT. PT DENIES ANY PAIN. CALL LIGHT IN REACH.
--- NOTE | 2022-01-19 21:30 | NUR ---
pt called to get up to the bsc, void, new attends, fresh purewick device in place, trung care done, pt is 1-2pa, vs done, room tidied, dinner tray finished, no further needs at this time rn in to see pt
--- NOTE | 2022-01-19 21:31 | NUR ---
PT ASSISTED TO BEDSIDE COMMODE WITH TWO STAFF ASSIST, PT TOLERATED WELL, SHE IS VERY EMOTIONAL/TEARFUL. NEW PUREWICK PLACED AT THIS TIME ONCE PT BACK TO BED. PRIMARY RN INTO ROOM STAFF ASSISTED PT BACK TO BED.
--- NOTE | 2022-01-19 23:44 | NUR ---
PT WAS RESTLESS. REMOVED PILLOWS FROM UNDER HER KNEES.GAVE HER A SIP OF COLD WATER, TUNED LIGHTS DOWN. CALL LIGHT IN REACH.
--- NOTE | 2022-01-20 00:59 | NUR ---
PT WAS RESTLESS AND IN PAIN. RATED HER PAIN 7/10. SHE WAS GIVEN ORAL MORPHINE 5 MG. CALL LIGHT IN REACH.
--- NOTE | 2022-01-20 07:00 | NUR ---
purewick changed at this time
--- NOTE | 2022-01-20 07:38 | NUR ---
PT HAS HAD INCREASING PAIN THIS SHIFT.SHE HAS HAD ORAL MORPHINEE X 2 DOSES WITH PAIN RELIEF NOTED. PT HAS HAD INCREASED BLOODY/BROWN VAGINAL DISCHARGE WITH FOUL ODOR. SHE HAS BEEN ASSISTED TO THE BSC BY 2 STAFF. SHE FINDS THIS VERY PAINFUL. SHE HAS HAD A DESIRE FOR WELSH FRIES AND WAS ABLE TO EAT SOME OF HER DINNER WITH HER DAUGHTERS HELP.
--- NOTE | 2022-01-20 07:58 | NUR ---
REPORT RECEIEVED FROM SHIRA MALONEY. PATIENT LYING IN BED SUPINE. BED ALARM ON AT THE TIME OF BEDSIDE REPORT
--- NOTE | 2022-01-20 11:57 | NUR ---
PATIENT PREMEDICATED FOR SHOWER. STOOD DURING SHOWER DUE TO PAIN BUT STATED IT FELT GOOD TO SHOWER. PERIAREA CLEANED AND PUREWICK REPLACED AND TIME/DATED. HAS NOT HAD BM SINCE 01/15/22 TAKING BOWEL MEDICATIONS. DRINKS WATER WITH ENCOURAGEMENT. IS ALERT TO PERSON PLACE TIME AND DATE THIS MORNING. PROVIEDED WARM BLANKETS AFTER SHOWER. WILL CONTINUE TO MONITOR
--- NOTE | 2022-01-20 12:32 | NUR ---
PATIENT TERRI WAS CHANGED AT NOON AFTER HER SHOWER. PATIENT COULDN'T SIT DOWN TO PAINFULL SO SHE STOOD UP WITH HER WALKER AND I WASHED HER. AND SHANPOOED HER HAIR. WE GOT HER WARM BLANKETS NEW GOWN NEW SOCKS. ASHLY HELPED ME BY MAKING HER BED. NOW FAMILY IS IN THE ROOM. SHE IS EATING HER LUNCH.
--- NOTE | 2022-01-20 12:45 | NUR ---
Reassed pain. family at the bedside. patient declined prn pain medicaitons at this time. Report given to Nessa MALONEY
--- NOTE | 2022-01-20 13:15 | NUR ---
report from Keyonna MALONEY, family in room, pt has call light in reach.
--- NOTE | 2022-01-20 16:19 | NUR ---
CHANGED PATIENT'S PUREWICK AT 1550. HER TAPED ATTEND WAS DRY.
--- NOTE | 2022-01-20 18:26 | NUR ---
PATIENT WANTED TO KEEP HER FOOD SHE WANTS TO EAT LATER.
--- NOTE | 2022-01-20 18:44 | NUR ---
family in room, denies needs, brought in outside food.
--- NOTE | 2022-01-20 20:04 | NUR ---
PT APPEARS TO BE COMFORTABLE. DENIES ANY PAIN. DAUGHTER IS AT THE BEDSIDE ASSISTING PT WITH COOKIES AND CHOCOLATE GANACHE. CALL LIGHT IN REACH. NO NEEDS AT THIS TIME.
--- NOTE | 2022-01-20 22:03 | NUR ---
PATIENT ASSISTED TO THE BSC A 2PA. PATIENT ABLE TO VOID SMALL AMOUNT. JOCE CARE COMPLETED. PATIENT IS BACK IN BED RESTING. NEW PURE WICK PLACED. PATIENT ANXIOUS AND TEARFUL WITH ACTIVITY. PATIENT DENIES ANY NEEDS. DAUGHTER REMAINS IN ROOM. CALL LIGHT IN REACH.
--- NOTE | 2022-01-20 22:45 | NUR ---
PT'S DAUGHTER JUST LEFT. PT APPEARS TO BE SLEEPING.
--- NOTE | 2022-01-20 22:56 | NUR ---
PT SAYS SHE IS COMFORTABLE RIGHT NOW. HAS TV CONTROL AND CALL LIGHT.
--- NOTE | 2022-01-21 00:07 | NUR ---
PT WAS CONFUSED ABOURT WHERE SHE IS AND TRIED TO CLIMB OUT OF BED. SHE WAS REORIENTED, REPOSITIONED AND GIVEN ORAL MORPHINE 5 MG FOR HER PAIN. PT IS RESTING QUIETLY NOW.
--- NOTE | 2022-01-21 04:33 | NUR ---
PT APPEARS TO BE SLEEPING QUIETLY. LIGHTS ARE DOWN. BED ALARM IS ON. CALL LIGHT IS IN REACH.
--- NOTE | 2022-01-21 07:57 | NUR ---
PT AWAKE IN BED READING THE NEWS ON HER PHONE, CONFUSED TO THE DAY AND TIME, REPORTS PAIN OK - PURE WICK DRAINING TO SUCTION WALL - REPORTS PAIN WITH MOVEMENT.
--- NOTE | 2022-01-21 08:52 | NUR ---
scds on - dr rosales in to visit pt and dtg
--- NOTE | 2022-01-21 09:48 | NUR ---
rn and watch parts grinder assisted pt to pivot transfer to bsc - no bm, 100 ml of foul smelling purlent drainange noted - gold color. pt tollerated well on bsc - wiped with warm bed bath wipes and warm shower cap - back to clean linens in bed and new pure wick in place.
--- NOTE | 2022-01-21 13:47 | NUR ---
PT TRSF FROM BED TO BSC WITH 2 PERSON ASSIST. VOID 100 ML PURULENT DRAINAGE -TOLLERATED WELL.
--- NOTE | 2022-01-21 15:27 | NUR ---
PT VISITING WITH FAMILY - ORAL PAIN MEDS GIVEN IN ANTICIPATION FOR USING THE BSC.
--- NOTE | 2022-01-21 18:00 | NUR ---
PT USED COMMODE WITH HELP OF 2 STAFF MEMBERS. PT LAID DOWN IN BED AFTER, JOCE CARE PROVIDED. VITALS AND I/O'S WERE COMPLETED. FAMILY MEMBER IN ROOM VISITING. NO COMPLAINTS OF PAIN OR OTHER NEEDS AT THIS TIME. CALL LIGHT IN REACH.
--- NOTE | 2022-01-21 19:33 | NUR ---
REPORT RECEIVED FROM DAY SHIFT RN. PT LYING IN BED ALERT AND ORIENTED. VISITOR AT BEDSIDE. DENIES NEEDS. WHITE BOARD UPDATED. CALL LIGHT IN REACH.
--- NOTE | 2022-01-21 20:36 | NUR ---
CALL LIGHT ANSWERED. 2PA TO BSC TO VOID 100 ML. PT INCONTINENT WELL. STAFF ASSIST WITH JOCE CARE. BACK TO BED. PT REPORTS INCREASED VAGINAL PAIN. PRN FOR PAIN ADMIN PER EMAR. SCHEDULED MEDS ADMIN. VS AND I&O COMPLETE. EVENING ASSESSMENT DONE. PT DENIES QUESTIONS OR CONCNERS. CALL LIGHT IN REACH. VISITOR IN ROOM. BED ALARM FOR SAFETY.
--- NOTE | 2022-01-21 20:46 | NUR ---
DR. TRUJILLO CALLED AND MADE AWARE PT HAS NO IV ACCESS. OK'D TO LEAVE SL OUT. VERIFIED WITH READ BACK METHOD.
--- NOTE | 2022-01-21 20:55 | NUR ---
PT INCONTINENT AND UP TO BSC TO VOID SMALL AMOUNT OF URINE. STAFF ASSIST WITH JOCE CARE. BACK TO BED, NANDO LAURA. PUREWICK PLACED, CONNECTED TO WALL SUCTION.
--- NOTE | 2022-01-21 22:35 | NUR ---
WARM BLANKET2 PROVIDED.
--- NOTE | 2022-01-21 23:06 | NUR ---
PATIENT REPOSITIONED PILLOW PLACED ON HER RIGHT SIDE. DENIES FURTHER NEEDS AT THIS TIME.
--- NOTE | 2022-01-21 23:28 | NUR ---
IN TO ROUND ON PT. PT REPORTS JOCE AREA PAIN 01/14. PRN FOR PAIN ADMIN PER EMAR. ASSISTED TO REPOSITION TO LEFT SIDE WITH PILLOWS. BED ALARM ON. NO FURTHER NEEDS.
--- NOTE | 2022-01-22 00:48 | NUR ---
PT RESTING IN BED WITH EYES CLOSED. RESPIRATIONS EVEN. CALL LIGHT IN REACH. BED ALARM FOR SAFETY.
--- NOTE | 2022-01-22 02:57 | NUR ---
PT RESTING WITH EYES CLOSED. AWAKENS EASILY WHEN DOOR OPENS. OFFERED PAIN MEDICINE, PT STATES "I DON'T NEED IT RIGHT NOW." REPORTS SHE IS RESTING COMFORTABLY. PUREWICK IN PLACE WITH YELLOW URINE IN CANNISTER. NO FURTHER NEEDS. CALL LIGHT IN REACH. BED ALARM FOR SAFETY.
--- NOTE | 2022-01-22 06:40 | NUR ---
VS AND I&O COMPLETE. PT REPORTS SHE SLEPT WELL. PT INCONTINENT A SMALL AMOUNT AROUND PUREWICK. JOCE CARE DONE BY STAFF. CLEAN BRIEF PLACED. AFTER MOVEMENT PT REPORTS JOCE AREA PAIN 01/14. PRN FOR PAIN ADMIN PER EMAR. 2PA TO REPOSITION IN BED. FRESH WATER AND ENSURE PROVIDED. PT DENIES FURTHER NEEDS. CALL LIGHT IN REACH. BED ALARM FOR SAFETY.
--- NOTE | 2022-01-22 07:34 | NUR ---
PT RESTING IN BED AT TIME OF SHIFT EXCHANGE. AGREES SHE IS COMFORTABLE DENIES NEEDS AT THIS TIME.
--- NOTE | 2022-01-22 09:20 | NUR ---
Received a message from Hospice from 0700 this am. I arrived at 9:20. Called and spoke with Rochelle, she states she spoke with the daughter and they no longer want Hospice. She is wanting to know if she should cancel the DME. Let her know, I will speak with the family as soon as our 9:30 meeting with the hospitalist is over. 1000 Spoke with daughter and pts ex . They state they cannot take pt home and stay with her. They would like placement to [facility]. Let them know she was declined by their RN last week. Hue did not understand when she was told this by the other CM on . They would like placement to a SNF or RETIREMENT. Chart was faxed to [facility] as this is the only SNF with a bed open within 60 mile radius. Also discussed with family again, I will need to give them a no medical necessity letter from [facility] as the in report stated she does not have a medical need to remain in the hospital. Let them know, I will continue to help them with placement, but they need to make a decision and stick with it. They state they will take a SNF or [facility]. They are aware an RETIREMENT is out of pocket.
--- NOTE | 2022-01-22 10:20 | NUR ---
PT CONTINUES RESTING IN BED AT THIS TIME VISITORS X2. PT AGREES SHE IS COMFORTABLE DENIES NEEDS OF
--- NOTE | 2022-01-22 11:00 | NUR ---
Contacted [facility] and asked if they have beds open. They request I send the chart. I also contact [facility] in [place] to check if any beds have opened, and they do not have any availability. Charts faxed to both [facility].
--- NOTE | 2022-01-22 11:06 | NUR ---
VISITORS X2 DC BLOW UP OPERATOR IN TO SEE PT.
--- NOTE | 2022-01-22 12:13 | NUR ---
PT AGREES SHE IS READY FOR PAIN MEDICATIONS, MORPHINE ADMINISTERED. DAUGHTER IS PRESENT IN THE ROOM NOON MEAL SERVED. OTHER NEEDS OF DENIED
--- NOTE | 2022-01-22 12:14 | NUR ---
IRRIGATIONIST'S CHECKED PTS INCONTINENCE. JOCE CARE DONE ON PT. PUREWICK CHANGED. PT CO PAIN. (5). NURSE NOTIFIED. NO OTHER REQUESTS AT THIS TIME. CALL LIGHT IN REACH. DAUGHTER PRESENT AT BEDSIDE.
--- NOTE | 2022-01-22 12:17 | NUR ---
DR TRUJILLO IN TO SEE PT, DAUGHTER IS PRESENT.
--- NOTE | 2022-01-22 12:30 | NUR ---
Received a call from Aminata at [facility]. They will not accept this pt as they do not feel she is a good candidate for rehab. Family updated.
--- NOTE | 2022-01-22 13:34 | NUR ---
FAMILY HAD JUST LEFT FOR A LITTLE. PT RESTING IN RM, NO TV OR MUSIC ON. PT RECOGNIZES ME AND WELCOMES ME.PT UNSURE ABOUT WHAT DAY IT IS, THINKS IT IS SATURDAY. PT STILL SEEMS CONFUSED, GETS EMOTIONAL. HARD TO MAKE SENSE OUT OF WHAT PT IS SAYING AND SHE KNOWS IT. GAVE COMFORT, HAD PRAYER WITH PT. WILL CONTINUE TO FOLLOW UP WITH PT AND DAUGHTER.
--- NOTE | 2022-01-22 15:00 | NUR ---
Called [facility] and spoke with brick veneer maker. She states RN has left for the day. They have discussed this pt and will call in the am with a time to come and eval this pt tomorrow. Attempted to call Misty from [facility], unable to reach. Spoke with daughter and gave the [facility] 12 letter. Showed ex how to complete a medicare appeal if they do not feel discharge is correct. I received two messages from Chrissie from [facility] in [place]. She states [facility] in [place] will be reopening following their remodel. She would like pts chart. I attempted to call her x 3 and let her know we cannot hold this pt until February 05.
--- NOTE | 2022-01-22 15:33 | NUR ---
OLGA REMAINS AT BEDSIDE REQUESTS TO KNOW IF ANXIETY MEDS ARE AVAILABLE TO PT JUST IN CASE. DENIES ANY SIGNS OF ANXIETY. ASSURERED HER THAT IF THEY ARE NEEDED AT ANYTIME MD WILL BE NOTIFIED AND ANY DISCOMFORTS ADDRESSED. PT IS DOZING AWAKENS TO SOUND OF TILE MACHINE OPERATOR ENTERING THE ROOM. DOES NOT ASSIGN A NUMBER TO HER PAIN, STATING ONLY "IT'S NOT BAD" FAMILY STATE SHE DOZES THEN WAKES UP COMPLAINING OF PAIN. TYLENOL ADMINISTERED WELL MORPHINE Q3. FENT PATCH IS IN PLACE. FRESH H20 AT BEDSIDE WITH CALL LIGHT AND OTHER NEEDED ITEMS.
--- NOTE | 2022-01-22 16:57 | NUR ---
PT RESTING SOUNDLY APPEARS COMFORTABLE. CALL LIGHT IN REACH
--- NOTE | 2022-01-22 17:38 | NUR ---
pt ex at bedside she is sitting up in bed with evening meal agrees she is comfortable.
--- NOTE | 2022-01-22 18:24 | NUR ---
NOTE SENT TO DR TRUJILLO R/T NO BM SINCE THE AND PT CONTINUES TO BE PAINFUL. XRAY IN TO DO ABDOMINAL SINGLE VIEW. PAIN MEDS GIVEN. FLEETS ADMINBISTERED
--- NOTE | 2022-01-22 19:39 | NUR ---
REPORT RECEIVED FROM DAY SHIFT RN. PT IN BED AWAKE AND ALERT. INCONTINENT OF BM. JOCE CARE DONE BY DAY SHIFT INSURANCE EXAMINING CLERK'S. JOCE AREA RED, BARRIER CREAM APPLIED. PUREWICK IN PLACE. PT REPORTS JOCE AREA PAIN 02/14. PRN FOR PAIN ADMIN PER EMAR. NO FURTHER NEEDS AT THIS TIME. CALL LIGHT IN REACH. BED ALARM FOR SAFETY. WHITE BOARD UPDATED.
--- NOTE | 2022-01-22 22:15 | NUR ---
EVENING ASSESSMENT COMPLETE. SCHEDULED MEDS ADMIN PER EMAR. PT INCONTINENT OF BM. JOCE CARE DONE BY STAFF. BARRIER CREAM APPLIED TO JOCE AREA DUE TO REDNESS. WITH MOVEMENT PT REPORTS PAIN /10. PRN FOR PAIN ADMIN PER EMAR. 2PA TO REPOSITION IN BED. VS AND I&O COMPLETE. PUREWICK PLACED FOR NOC. PT DENIES QUESTIONS OR CONCERNS. CALL LIGHT IN HAND. BED ALARM FOR SAFETY.
--- NOTE | 2022-01-23 00:51 | NUR ---
PT RESTING WITH EYES CLOSED. RESPIRATIONS EVEN. AWAKENED TO CHECK BRIEF FOR BM INCONTINENCE. ATTENDS DRY. PUREWICK IN PLACE. DENIES NEEDS. CALL LIGHT IN REACH.
--- NOTE | 2022-01-23 02:41 | NUR ---
PT RESTING WITH EYES CLOSED. AWAKENED BRIEFLY TO CHECK FOR INCONTINENCE. ATTENDS DRY. ASSISTED TO REPOSITION. REPORTS PAIN IS TOLERABLE, DENIES PRN FOR PAIN. NO NEEDS AT THIS TIME.
--- NOTE | 2022-01-23 05:57 | NUR ---
VS AND I&O COMPLETE. PT INCONTINENT OF SMALL AMOUNT OF SOFT BM AND URINE. JOCE CARE DONE BY STAFF. CLEAN BRIEF PLACED. PUREWICK CHANGED. 2PA TO REPOSITION IN BED WITH PILLOWS. PT REPORTS JOCE AREA PAIN 01/14. PRN FOR PAIN ADMIN PER EMAR. ORAL CARE SUPPLIES PROVIDED. PT DENIES FURTHER NEEDS. CALL LIGHT IN REACH. BED ALARM FOR SAFETY.
--- NOTE | 2022-01-23 08:07 | NUR ---
PT RESTING EYES CLOSED AT TIME OF SHIFT EXCHANGE, LEFT UNDISTURBED. AWAKE NOW EATING BREAKFAST STATES SHE FEELS BETTER THAN YESTERDAY BUT IS STILL PAINFUL. WILL CONTINUE PAIN MEDS AT REGULAR INTERVALS. SELF FEEDING APPEARS TO BE EATING HEARTILY DENIES NEEDS AT THIS TIME, FRESH H20 CALL LIGHT AND NEEDED ITEMS IN REACH.
--- NOTE | 2022-01-23 09:30 | NUR ---
Contact Diony from [facility] by text and asked if they still planned on evaluating pt today. She states she thinks so and will let me know later.
--- NOTE | 2022-01-23 11:17 | NUR ---
WORK WITH P/T WELL TOLERATED. PT CONTINUES THIS SHIFT WITHOUT C/O PAIN, BUT AGREES HER JOCE AREA IS VERY "SORE" WHEN ASKED. SITTING IS TOO PAINFUL FOR HER, BUT SHE IS STANDING AND GETTING OUT OF BED MUCH BETTER THAN YESTERDAY. PT TO THE SHOWER AT THIS TIME USING BSC INSTEAD OF SHOWERCHAIR FOR COMFORT. STAFF ASSIST.
--- NOTE | 2022-01-23 12:00 | NUR ---
ASKED PT IF SHE WANTED A SHOWER, SHE WAS VERY HAPPY TO HAVE ONE. PT SAT AT BEDSIDE, USED WALKER W/STBY ASSIST TO AMBULATE TO BATHROOM. HAD PT SIT ON COMMODE TO RELEIVE PRESSURE FROM HER VAGINAL AREA. PT ASSISTED IN SHOWER. HAIR SHAMPOO/CONDITING. JOCE AREA CLEANDED EXTRA WELL. PT AMBULATED BACK TO BED STBY ASSIST. CREAM APPLIED AND NEW PUREWICK PLACED. PT WAS ADAMAT ABOUT SPEAKING WITH THE NURSE ABOUT WHO CAN/CAN'T HAVE ACCESS TO HER OR HER INFORMATION. I SPOKE WITH THE NURSE AND SHE DISCUSSED FURTHER W/PT. TABLES SET AT BEDSIDE, NEW WATER GIVEN W/LUNCH, CALL LIGHT NEXT TO PT.
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
--- NOTE | 2022-01-23 13:37 | NUR ---
Expedited Appeal Documentation faxed to [facility] as requested following Medicare Appeal.
--- NOTE | 2022-01-23 14:13 | NUR ---
CM JARED IN WITH PT, WILL CHECK AGAIN
--- NOTE | 2022-01-23 15:19 | NUR ---
Spoke with Chrissie feng from [facility]. She requests chart for Юлия. Let her know another INTERMEDIATE is seeing her at 3:30. The daughter had called them also and preferred the pt stay in town. If they do not accept her, I will send the chart.
--- NOTE | 2022-01-23 16:00 | NUR ---
Diony and Sultana here from [facility]. To room and introduced them to Юлия. Family are out of the room and asked if she would like them to return. She states they have left for [place]. She states she doesn't want to cont. the same argument she has had with her daughter about hospice. We again discussed it was she who requested hospice not the daughter. She states she has asked her daughter and ex Flex to leave. Pt is alert and Diony states they will cont with questions for placement. I called the daughter and she states they are at the nursing station the pt said they were no longer needed. They are waiting to tell the pt good bye as Hue is flying home tomorrow and Flex is going home to [place]. Hue left to go to the front of the hospital. Discussed with lFex this is not uncommon, Flex states Hue and Юлия's relationship has had issues in the past as Юлия only wants her when she needs something.
--- NOTE | 2022-01-23 17:00 | NUR ---
Diony and Sultana finished visit and came out asking for Sebastian. Pt has changed her mind and is tearful, states she does not want to push her only child away. Now would like family to return, [facility] notified. [facility] states they will accept this pt. It may not be until as they need to set up the room and pt needs to have equipment moved in. I will request orders for a hospital bed as pt cont. to not be able to sit due to pain. She will need a hospital bed for possition due to the pain in her perineum.
--- NOTE | 2022-01-23 17:19 | NUR ---
[facility]SISTED LIVING HERE TO CONSULT WITH PT ABOUT POSSIBLE PLACEMENT TO FACILITY. DC COMMUNITY LIVING COACH AND FAMILY ALL MEET WITH HER TO DISCUSS OPTIONS.
--- NOTE | 2022-01-23 17:55 | NUR ---
TOOK PT VITALS, DOCUMENTED ALONG W/I & O'S. PT NEEDED TO USE BEDSIDE COMMODE. STBY ASSIST NO WALKER. PT WAS STEADY AND NO COMPLAINTS OF PAIN. PT PERFORMED OWN JOCE-CARE W/ASSIST. THIS CNA2 APPLIED BARRIER CREAM TO JOCE AREA AND NEW PUREWICK WILL BE PLACED. PT IS IN A HAPPIER MOOD THIS AFTERNOON AND ATE MORE THAN PREVIOUSLY. PT IS BACK IN BED RESTING COMFORTABLY, NO COMPLAINTS OF PAIN OR DISCOMFORT. CALL LIGHT IN REACH ALONG WITH BELONGINGS ON BEDSIDE TABLES.
--- NOTE | 2022-01-23 18:33 | NUR ---
JOCE-CARE PERFORMED & PUREWICK PLACED. PT IS RESTING COMFORTABLY.
--- NOTE | 2022-01-23 19:51 | NUR ---
PT REPORTS VAGINAL PAIN 01/14. PRN FOR PAIN ADMIN PER EMAR. ASSISTED TO REPOSITION FOR COMFORT. NO FURTHER NEEDS. CALL LIGHT IN REACH. BED ALARM FOR SAFETY.
--- NOTE | 2022-01-23 22:10 | NUR ---
At approximately 1915, this nurse met w/this patient at bedside. Patient calm and pleasant. Claimed moderate amount of tenderness in trung area (12/15). Weak movement in BLE. Patient appears slightly confused to date, but participates in conversation well. Breathing unlabored. Lungs clear bilat. Bowel sounds active in all quandrants.
--- NOTE | 2022-01-24 04:28 | NUR ---
Patient has been confused over shift. Had to be reoriented to time and place twice. Pleasantly confused. Changed and repositioned throughout shift. Reddened area on coccyx. Continues to use purewick to void. Swelling/redeness noted in trung area. Patient complains of pain at this site. Passing flatus. No BM. No IV site.
--- NOTE | 2022-01-24 07:35 | NUR ---
ROUNDED ON PT WITH TUBE TELLER NURSE. PT IS ALERT, RESPIRATIONS EVEN AND REGULAR. CALL LIGHT WITHIN REACH.
--- NOTE | 2022-01-24 08:13 | NUR ---
TO PT ROOM FOR MORNING ASSESSMENT AND MEDICATION ADMINISTRATION. PT A/O, CONVERSIVE. VS WNL. TERRI CHANGED. ENCOURAGED FLUIDS. CALL LIGHT WITHIN REACH.
--- NOTE | 2022-01-24 09:30 | NUR ---
Pt called and requested assistance to use bathroom, states has been using commode. Pt sits up by self and sets off bed alarm, pt encouraged to wait for RN to transfer before standing, pt stands and attempts to move commode away from next to the bedside where it had been sitting. Pt lost her footing and fell to floor, this RN was unable to catch patient or assist her gently to floor. Pt had FWW in reach, nonslip socks on, RN present, and bed alarm had been on. Assisted immediately by multiple staff, education supervisor and ENAMEL BURNER and RN, up and safely to commode and head to toe assessment completed to assess for injuries, 1.5cmx1.5cm skin tear noted to L neck, cleaned and bandage applied. Pt states "slight headache" no outward head trauma noted. Pt transferred safely back to bed and states no injuries to ABD or extremities and demonstrates full range of motion in each. VSS. Post fall huddle complete, physician notified.
--- NOTE | 2022-01-24 10:32 | NUR ---
TO PT ROOM TO CHECK ON PT POST FALL. PT AT BEDSIDE. PT C/O PAIN AT BACK OF HER HEAD. SHE HAS DEVELOPED A HEMAOTOMA. PT REMINS A/O, CONVERSIVE, SPEECH CLEAR. PUPILS EQUAL AND REACTIVE. HOSPTIALIST CALLED AND WILL ORDER IMAGING.
--- NOTE | 2022-01-24 12:02 | NUR ---
Notified by [facility], they are working on admission for this pt. It will not be until tomorrow. I am awaiting notes for hospital bed. [facility] also requesting a POLST form to be completed.
--- NOTE | 2022-01-24 12:25 | NUR ---
PT RETURNED FROM CT. TERRI REPLACED. SITTING UP IN BED EATING LUNCH. PT IS A/O, SPEECH CLEAR. COMMUNICATING NEEDS.
--- NOTE | 2022-01-24 13:13 | NUR ---
PT RESTING ALERT AND REQUESTING I FIND HER FAVORITE "SOUNDSCAPES" MUSIC TRIPP ON TV-WHICH I DID. PT INFORMED ME SHE THINKS SHE WILL TRANSITION TO [facility]. JAMES COLEMAN AGREED. GAVE ENCOURAGEMENT, AND BLESSING JAMES COLEMAN INFORMED ME DAUGHTER ALFONSO RETURNED TO HER HOME. WILL FOLLOW
--- NOTE | 2022-01-24 14:26 | NUR ---
Faxed face sheet, Rx, H&P, Progress notes to [facility] [place] to deliver electric hospital bed to [facility] tomorrow.
--- NOTE | 2022-01-24 15:19 | NUR ---
ROUNDED ON PT. PT IS ALERT. PUREWICK IN PLACE AND DRAINING. ICE APPLIED TO BACK OF HEAD. REQUESTING TYLENOL FOR GREWAL.
--- NOTE | 2022-01-24 17:16 | NUR ---
ROUNDED ON PT. A/O, EATING DINNER. STATES GREWAL HAS IMPROVED. RATES PAIN 2/10.
--- NOTE | 2022-01-24 19:49 | NUR ---
Patient alert. Repositioned at this time. Purkewick changed. Suction functioning properly. Luz Maria care performed. Call light within reach.
--- NOTE | 2022-01-24 20:56 | NUR ---
PT WAS BOOSTED IN BED. ATTENDS CHANGED PURE WICK REPLACED. DRAW SHEET AND CHUX CHANGED. PT TOLERATED THIS VERY WELL. CALL LIGHT IN REACH. BED ALARM ON.
--- NOTE | 2022-01-25 01:43 | NUR ---
PT CHECKED . PURE WICK IS DRAINING URINE WELL. ATTENDS IS DRY. PT FELT CHILLY. WARMED BLANKET APPLIED. CALL LIGHT IN REACH. BED ALARM IS ON.
--- NOTE | 2022-01-25 04:22 | NUR ---
Patient has remained in bed throughout shift. Bed alarm has remianed in place. Patient has been treated for pain in back of head and trung area. Small hematoma felt on back of head. Treated w/PRN morphine. Trung area still inflamed. Brown discharge noted. Purewick changed and utilized throughout shift. Patient has had adequate urine output.
--- NOTE | 2022-01-25 06:36 | NUR ---
Patient depends changed. Purewick changed. Luz Maria care performed. Barrier cream applied to buttocks. Patient denies needs. Bed alarm on. Call light within reach.
--- NOTE | 2022-01-25 08:58 | NUR ---
Call from daughter, She has questions if pt has to stay at [facility] or can move to another facility in the future. Let her know she is renting a room and caregivers. She is able to change at any time. She may need to give a 30 day notice. This will be up to the family and pt to pursue. Plan remains for pt to move to [facility] today when bed is delivered by [facility].
--- NOTE | 2022-01-25 09:00 | NUR ---
REPORT RECEIVED FROM NIGHT RN AND PT. CARE RESUMED. PT. IS ALERT BUT CONFUSED AND POSSIBLY HALLUCINATING. SHE STATES SHE IS SEEING THINGS "RUNNING DOWN THE WALL". PT. REORIENTED. SHE IS TEARFUL AT TIMES DISCUSSING DIAGNOSIS. THERAPEUTIC COMMUNICATION USED. ASSESSMENT COMPLETED. PUREWICK IS PATENT AND DRAINING CLEAR YELLOW URINE. PT. LEFT RESTING WITH CALL LIGHT IN REACH.
--- NOTE | 2022-01-25 09:30 | NUR ---
Checked medicare appeal on [facility] site. It is not completed. Contacted [facility] by phone and was able to speak with someone. Asked if we can dc this pt as pt and daughter now agree to placement and she stated yes. Unfortunately, we were cut off. She was in the middle of giving me an email address to send this infor. Found their email on line and emailed infor with case number.
--- NOTE | 2022-01-25 10:15 | NUR ---
ROUNDING ON PT. SHE REPORTS MILD, TOLERABLE PAIN IN PELVIC AREA. REPOSITIONED. REFUSES PAIN MEDS. PT. IS STILL TEARFUL AT TIMES. REASSURED. LEFT RESTING WITH CALL LIGHT IN REACH.
[2022-01-25] MEDS ORDERED: MOVANTIK25 MG PO ×2 (11:46)
[2022-01-25] MEDS ORDERED: MORPHINE S100 MG/5 M PO ×2 (11:50)
[2022-01-25] MEDS ORDERED: FENTANYL1 EACH TD ×2 (11:50)
--- NOTE | 2022-01-25 12:07 | NUR ---
Recieved text from Erika Coffman.He is attempting to deliver the bed, but is in need of a signature from the pt or daughter. He is unable to contact the daughter. Called and spoke with Augustus. Let him know he can visit here at the hospital and have the pt sign. He states he will finish his route and then return and deliver the bed. He is awaiting to hear from his office what the copay will be.
--- NOTE | 2022-01-25 13:15 | NUR ---
Spoke with daughter, Hue in the [place]. She states she was able to contact Augustus from [facility]. Bed will be delivered in 1 1/2 hours. She asks if pt has a new POLST and let her know, I spoke with mom this again this morning and she confirmed she wants CPR and limited interventions. She does not want to be intubated. Form was signed by and pt. I faxed to [facility] with orders,DC summary, progress notes. Let her know, when the bed is set up, I will contact EMS for transport.
--- NOTE | 2022-01-25 14:22 | NUR ---
CONNECTED WITH DAUGHTER ALFONSO. HER AND PT ARE HAVING A BETTER DAY, PT TO GO TO [facility] TODAY. BOTH ARE OK WITH THIS. CONNECTED WITH PT, HAD A MOMENT WITH HER. GAVE ENCOURAGEMENT AND BLESSING AND HAD PRAYER WITH PT.
--- NOTE | 2022-01-25 14:28 | NUR ---
Received a call from [facility] stating their MD is in agreement with letter to discharge. Updated Pt will dc today to [facility].
--- NOTE | 2022-01-25 14:41 | NUR ---
ASSESSMENT COMPLETED. PT. ASSISTED WITH REPOSITIONING. RED, BLANCHABLE SPOT ON COCCYX WITH HEALING ABRASION. ALLEVYN APPLIED. PT. ENCOURAGED TO DRINK ENSURE AND STATES SHE DOES NOT HAVE A GREAT APPETITE AT THIS TIME. LEFT RESTING WITH CALL LIGHT IN REACH.
--- NOTE | 2022-01-25 16:00 | NUR ---
REPORT CALLED TO [facility]. RN STATES SHE IS TOO BUSY TO GET REPORT AND WILL CALL BACK.
--- NOTE | 2022-01-29 10:18 | NUR ---
Received phone message from daughter, Hue, requesting chart to be faxed to [facility] in [place] at [phone]. Chart faxed as requested. No referral was sent as hospitalist has gone off shift that was here when her mother was here.
== END 2022-01-25 15:50 | DRG 755 ==
LOC: ED 15:55 → MS 22:07
PROVIDERS: ADMIT Internal Medicine; ATTEND Internal Medicine
DX: C55 Malignant neoplasm of uterus, part unspecified (principal); C78.01 Secondary malignant neoplasm of right lung; C78.02 Secondary malignant neoplasm of left lung; G89.3 Neoplasm related pain (acute) (chronic); S00.03XA Contusion of scalp, initial encounter; W19.XXXA Unspecified fall, initial encounter; I48.0 Paroxysmal atrial fibrillation; Z51.5 Encounter for palliative care; I10 Essential (primary) hypertension; M81.0 Age-related osteoporosis without current pathological fracture; E78.00 Pure hypercholesterolemia, unspecified; J45.909 Unspecified asthma, uncomplicated; F12.90 Cannabis use, unspecified, uncomplicated; M54.9 Dorsalgia, unspecified; Z20.822 Contact with and (suspected) exposure to COVID-19; D72.829 Elevated white blood cell count, unspecified; E86.0 Dehydration; Z90.710 Acquired absence of both cervix and uterus; Z79.01 Long term (current) use of anticoagulants; Z79.811 Long term (current) use of aromatase inhibitors; Z79.899 Other long term (current) drug therapy; Z98.890 Other specified postprocedural states; Z79.891 Long term (current) use of opiate analgesic
CPT/HCPCS: 36415; 70450; 70470; 70551; 71045; 72040; 74018; 80048; 80053; 81001; 83735; 85025; 85610; 85730; 86140; 87502; 93005; 93010; 96375; 97116; 97163; 97530; 99285-25; A9270; J0696; J2060; J2270; J2405; J3475; J7030; Q9967; U0003

== ENCOUNTER 2022-02-01 15:06 | Emergency (ER) | payer MEDICARE ==
[~2022-02-01] VITALS: Ht 162.6 cm; Wt 54.0 kg
[~2022-02-01 15:06] MED LIST changes: +FENTANYL1 EACH TD; +MORPHINE S100 MG/5 M PO; +MOVANTIK25 MG PO; +OXYBUTYNIN CHLOR5 MG PO; +PENTOXIFYLLINE400 MG PO; +SENEXON-S 50-81 EACH PO
--- OUTSIDE RECORDS SUMMARY | 2022-02-01 15:08 | XMS ---
PreManage Notification: JOS STONE Security Glass Inspector Events No recent Security Events currently on file CRITERIA MET - [facility] - 2 Visits in 30 Days - [facility] CARE PROVIDERS ELAINE Seaman MD,SWETHA Rustic Fence Builder/Sound Recordist Current PHONE: [phone] Umm has no Care Guidelines for this patient. E.Bee. VISIT COUNT (12 MO.) 2 [facility] TOTAL 2 NOTE: Visits indicate total known visits. ED/UCC VISIT TRACKING (12 MO.) 02/01/2022 15:06 [facility] TYPE: Emergency COMPLAINT: - GI BLEED 01/16/2022 15:56 [facility] TYPE: Emergency COMPLAINT: - WEAKNESS INPATIENT VISIT TRACKING (12 MO.) 01/16/2022 22:07 [facility] TYPE: Medical Surgical COMPLAINT: - UTERINE CANCER, ABDOMINAL PAIN, BACK PAIN DIAGNOSES: - Personal history of irradiation - technician terminal and repeater (current) use of aromatase inhibitors - Paroxysmal atrial fibrillation - Dorsalgia, unspecified - Dehydration - Weakness - Pure hypercholesterolemia, unspecified - Neoplasm related pain (acute) (chronic) - Cannabis use, unspecified, uncomplicated - Other specified postprocedural states - Unspecified asthma, uncomplicated - Secondary malignant neoplasm of right lung - Age-related osteoporosis without current pathological fracture - prison (current) use of opiate analgesic - Acquired absence of both cervix and uterus - Encounter for palliative care - Contact with and (suspected) exposure to COVID-19 - Secondary malignant neoplasm of left lung - Unspecified fall, initial encounter - prison (current) use of anticoagulants - Pelvic and perineal pain - Elevated white blood cell count, unspecified - Other longterm (current) drug therapy - Contusion of scalp, initial encounter - Urinary tract infection, site not specified - Essential (primary) hypertension - Personal history of antineoplastic chemotherapy - Malignant neoplasm of uterus, part unspecified [email or web address]
[2022-02-01] MEDS ORDERED: K-TAB ER20 MEQ PO (19:57)
== END 2022-02-01 20:42 | disposition home or self-care (01) ==
LOC: ED 15:06
DX: D64.9 Anemia, unspecified (principal); E87.6 Hypokalemia; I10 Essential (primary) hypertension; J45.909 Unspecified asthma, uncomplicated; Z79.899 Other long term (current) drug therapy; Z79.891 Long term (current) use of opiate analgesic
CPT/HCPCS: 36415; 80053; 81001; 85025; 96374; 96375; 99284-25; A9270; J1170

== ENCOUNTER 2022-02-02 11:12 | Emergency (ER) | payer MEDICARE ==
[~2022-02-02] VITALS: Ht 162.6 cm; Wt 54.0 kg
[~2022-02-02 11:12] MED LIST changes: +K-TAB ER20 MEQ PO
--- OUTSIDE RECORDS SUMMARY | 2022-02-02 11:14 | XMS ---
PreManage Notification: JOS STONE Security Fruit [employer] Nut Crops Farm Manager Events No recent Security Events currently on file CRITERIA MET - [facility] - 2 Visits in 30 Days CARE PROVIDERS ELAINE Seaman MD,SWETHA Ems Instructor/Hot Roll Inspector Current PHONE: [phone] Umm has no Care Guidelines for this patient. EBetty. VISIT COUNT (12 MO.) [address] [place] [address] TOTAL 3 NOTE: Visits indicate total known visits. ED/UCC VISIT TRACKING (12 MO.) 02/02/2022 11:13 [facility] TYPE: Emergency COMPLAINT: - VAGINAL BLEEDING 02/01/2022 15:06 [facility] TYPE: Emergency COMPLAINT: - GI BLEED 01/16/2022 15:[address] [facility] TYPE: Emergency COMPLAINT: - WEAKNESS INPATIENT VISIT TRACKING (12 MO.) 01/16/2022 22:[address] [facility] [place] TYPE: Medical Surgical COMPLAINT: - UTERINE CANCER, ABDOMINAL PAIN, BACK PAIN DIAGNOSES: - Personal history of irradiation - snf (current) use of aromatase inhibitors - Paroxysmal atrial fibrillation - Dorsalgia, unspecified - Dehydration - Weakness - Pure hypercholesterolemia, unspecified - Neoplasm related pain (acute) (chronic) - Cannabis use, unspecified, uncomplicated - Other specified postprocedural states - Unspecified asthma, uncomplicated - Secondary malignant neoplasm of right lung - Age-related osteoporosis without current pathological fracture - watermelon inspector (current) use of opiate analgesic - Acquired absence of both cervix and uterus - Encounter for palliative care - Contact with and (suspected) exposure to COVID-19 - Secondary malignant neoplasm of left lung - Unspecified fall, initial encounter - snf (current) use of anticoagulants - Pelvic and perineal pain - Elevated white blood cell count, unspecified - Other alf (current) drug therapy - Contusion of scalp, initial encounter - Urinary tract infection, site not specified - Essential (primary) hypertension - Personal history of antineoplastic chemotherapy - Malignant neoplasm of uterus, part unspecified [email or web address]
== END 2022-02-02 16:00 | disposition home or self-care (01) ==
LOC: ED 11:12
DX: D64.9 Anemia, unspecified (principal); N73.9 Female pelvic inflammatory disease, unspecified; C55 Malignant neoplasm of uterus, part unspecified; I10 Essential (primary) hypertension; J45.909 Unspecified asthma, uncomplicated; Z79.899 Other long term (current) drug therapy; Z79.891 Long term (current) use of opiate analgesic
CPT/HCPCS: 36415; 80048; 85025; 96374; 99284-25; J0696